=== PATIENT | female | born 1975 | race Caucasian/White ===

== ENCOUNTER 2016-09-19 17:42 | Emergency (ER) | payer MEDICAID ==
[2016-09-19 17:49] VITALS: BP 95/67; PULSE 78; TEMP 98.1; O2SAT 95
--- NOTE | 2016-09-19 18:18 | EDPHY ---
H & P Stated Complaint: dog bite l hand Time Seen by Provider: 09/19/16 18:18 HPI/ROS: CHIEF COMPLAINT: Dog bite left hand HISTORY OF PRESENT ILLNESS: The patient presents to the ED for evaluation of dog bite to her left hand. The patient was bit by her domesticated pet who is fully vaccinated. The patient denies any numbness or weakness. She sustained a puncture wound to the dorsum of her left hand over the 3rd MCP joint. She sustained another puncture wound over the ulnar aspect of her 4th finger distal to the MCP but proximal to the PIP joint. The patient reports severe allergy to tetanus and tetanus toxoid. The patient has no antibiotic allergies. The patient denies additional complaints. REVIEW OF SYSTEMS: A comprehensive 10 point review of systems is otherwise negative aside from elements mentioned in the history of present illness. Source: Patient Exam Limitations: No limitations - Personal History LMP (Females 10-55): Now Current Tetanus/Diphtheria Vaccine: No - Medical/Surgical History Hx Asthma: Yes Hx Chronic Respiratory Disease: No Hx Diabetes: No Hx Cardiac Disease: No Hx Renal Disease: No Hx Cirrhosis: No Hx Alcoholism: No Hx HIV/AIDS: No Hx Splenectomy or Spleen Trauma: No Other PMH: , - Social History Smoking Status: Former smoker - Physical Exam Exam: General Appearance: Alert, no distress Skin: 2 discrete puncture wounds described below on left hand Extremities: Left hand: Puncture wound over the dorsal aspect of the left hand overlying the 3rd MCP joint, puncture wound to the left 4th finger distal to the MCP along the ulnar aspect of the digit. Normal range of motion Neurological: Sensation intact to light touch and two-point discrimination Constitutional: Initial Vital Signs Temperature (C) 36.7 C 09/19/16 17:46 Heart Rate 78 09/19/16 17:46 Respiratory Rate 18 09/19/16 17:46 Blood Pressure 95/67 L 09/19/16 17:46 O2 Sat (%) 95 09/19/16 17:46 O2 Delivery Mode Room Air Allergies/Adverse Reactions: Tetanus Vaccines and Toxoid [Tetanus Vaccines & Toxoid] Allergy (Verified 17:43) IV CONTRAST Allergy (Intermediate, Uncoded 05/24/15 20:09) MIGRAINE MED Allergy (Uncoded 05/24/15 20:09) Home Medications: Medication Instructions Recorded Albuterol [Proventil 2 mg (*)] 05/24/15 Cholestyramine Packet 03/20/16 [place] 3 1,000 mg Softgel 03/20/16 Amoxicillin/Clavulanate Pot 875 mg PO BID #20 tab 09/19/16 [Augmentin 875 mg tablet] Medical Decision Making Procedures: Procedure: Splint placement. A ortho glass volar hand splint was applied to the body location by the tech. After application of the splint I returned and re-examined the patient. The splint was adequately immobilizing the joint and distal to the splint the patient's circulation and sensation was intact. ED Course/Re-evaluation: I anesthetized the puncture wounds with lidocaine with epinephrine. An angiocatheter was used to irrigate puncture wounds. The patient is intolerant to tetanus vaccination. The patient will be placed in a ortho glass volar splint. She received oral Augmentin. I spoke with Dr. Christine Shaw our on-call hand surgeon at 7:15 p.m.. I reviewed the case and ED treatment with her. She will see the patient in her office tomorrow to reassess the wound and verify there is no evidence of a septic arthritis developing. The patient will be discharged home with customary aftercare instructions. Differential Diagnosis: Differential diagnosis considered includes open joint, tendon injury, neurovascular injury - Data Points Medications Given: Discontinued Medications Amoxicillin/Clavulanate Potassium (Augmentin 875mg) 875 mg PO EDNOW ONE PRN Reason: Protocol Stop: 09/19/16 18:40 Last Admin: 09/19/16 18:49 Dose: 875 mg Departure - Departure Disposition: Home, Routine, Self-Care Clinical Impression: Dog bite of left hand Condition: Good Instructions: Animal Bite (ED) Additional Instructions: 1. Please take antibiotics as directed for next week. 2. Please schedule a follow-up appointment to see our hand surgeon tomorrow for recheck. I spoke with Dr. Christine Shaw this evening and she is expecting your telephone call morning. Given the proximity of the dog bite to the knuckle I am concerned about the risk of a more significant infection developing. It is imperative that you be seen by the hand specialist tomorrow to ensure this condition is not developing. Additionally, you should return to the ED for any increasing pain, redness, swelling or other concerns as this may be the sign of a progressive infection. 3. Please keep and immobilized in splint as much as possible over the next 7 days. Referrals: Christine Shaw MD [Medical Doctor] - As per Instructions Prescriptions: Amoxicillin/Clavulanate Pot [Augmentin 875 mg tablet] 875 mg PO BID #20 tab
[2016-09-19] MEDS ORDERED: AMOXICILLIN/CLAVULANATE POT 875/125 MG TAB PO ONE (18:39)
[2016-09-19 19:35] VITALS: RESP 16
== END 2016-09-19 19:34 | disposition home or self-care (01) ==
PROC: 2W3FX1Z Immobilization of Left Hand using Splint (ICD-10-PCS; principal; 2016-09-19)
DX: S61.452A Open bite of left hand, initial encounter (principal); J45.909 Unspecified asthma, uncomplicated; Z87.891 Personal history of nicotine dependence; W54.0XXA Bitten by dog, initial encounter

== ENCOUNTER 2016-09-21 15:24 | Emergency (ER) | payer MEDICAID ==
[2016-09-21 15:32] VITALS: RESP 18
--- NOTE | 2016-09-21 16:50 | EDPHY ---
H & P Stated Complaint: infection l hand post dog bite Time Seen by Provider: 09/21/16 16:30 - Personal History LMP (Females 10-55): 1-7 Days Ago Current Tetanus/Diphtheria Vaccine: No - Medical/Surgical History Hx Asthma: Yes Hx Chronic Respiratory Disease: No Hx Diabetes: No Hx Cardiac Disease: No Hx Renal Disease: No Hx Cirrhosis: No Hx Alcoholism: No Hx HIV/AIDS: No Hx Splenectomy or Spleen Trauma: No Other PMH: , - Social History Smoking Status: Former smoker Constitutional: Initial Vital Signs Temperature (C) 36.7 C 09/21/16 15:29 Heart Rate 78 09/21/16 15:29 Respiratory Rate 18 09/21/16 15:29 Blood Pressure 120/78 09/21/16 15:29 O2 Sat (%) 94 09/21/16 15:29 O2 Delivery Mode Room Air Allergies/Adverse Reactions: Tetanus Vaccines and Toxoid [Tetanus Vaccines & Toxoid] Allergy (Verified 15:29) IV CONTRAST Allergy (Intermediate, Uncoded 05/24/15 20:09) MIGRAINE MED Allergy (Uncoded 05/24/15 20:09) Home Medications: Medication Instructions Recorded Albuterol [Proventil 2 mg (*)] 05/24/15 Cholestyramine Packet 03/20/16 [place] 3 1,000 mg Softgel 03/20/16 Amoxicillin/Clavulanate Pot 875 mg PO BID #20 tab 09/19/16 [Augmentin 875 mg tablet] oxyCODONE IR [Oxycodone Ir (*)] 5 - 10 mg PO Q6 PRN #20 tab 09/21/16 Medical Decision Making ED Course/Re-evaluation: CHIEF COMPLAINT: Left hand wound HISTORY OF PRESENT ILLNESS: This patient is a 41 year old female who presents to the Emergency Department complaining of left hand pain, swelling, and erythema secondary to being bit by a dog on Tuesday and worsening over time. She was seen in the ED on Tuesday and received wound care at that time and started a course of Augmentin. Today, she saw Dr. Sangita Bland who referred the patient back to the ED for increasing swelling and evidence of inflammation. She denies chills, fever, or other evidence of systemic illness. She does not have a recent Tetanus on file due to history of allergy. No additional pertinent medical history. REVIEW OF SYSTEMS: A 10 point review of systems was performed and is negative with the exception of the elements mentioned in the history of present illness. PHYSICAL EXAM: HR, BP 170/78, O2 Sat 94%, RR. Temp noted General Appearance: Alert, well hydrated, appropriate, and non-toxic appearing. Head: Atraumatic without scalp tenderness or obvious injury Eyes: Pupils equal, round, reactive to light and accommodation, EOMI, no trauma , no injection. Ears: Clear bilaterally, no perforation, normal landmarks Nose: Atraumatic, no rhinorrhea, clear. Throat: There is no erythema or exudates, no lesions, normal tonsils, mucus membranes moist. Neck: Supple, 2+ carotid upstroke, nontender, no lymphadenopathy. Respiratory: No retractions, no distress, no wheezes, and no accessory muscle use. Lungs are clear to auscultation bilaterally. Cardiovascular: Regular rate and rhythm, no murmurs, rubs, or gallops. Bilateral carotid, radial, dorsalis pedis, and posterior tibial pulses intact. Good capillary refill all extremities. Gastrointestinal: Abdomen is soft, nontender, non-distended, no masses, no rebound, no guarding, no peritoneal signs. Musculoskeletal: Normal active ROM of all extremities. Left hand: no lymphangitis, limited left hand flexion and extension, 2cm increase to janet of cellulitis and swelling to the dorsum of the left hand; no streaking; multiple puncture wounds. No [place] signs. Neurological: Alert, appropriate, and interactive. The patient has normal DTRs and non-focal cranial nerves, motor, sensory, and cerebellar exam. Skin: No rashes, good turgor, no nodules on palpation. Past medical history: Asthma. Allergy to Tetanus shot. Past surgical history: Denies. Family history: Non-contributory. Social history: Non-smoker, no alcohol use. DIFFERENTIAL DIAGNOSIS: Differential diagnosis for the patient's hand swelling includes but is not limited to wound abscess, cellulitis, or systemic infection. MEDICAL DECISION MAKING: This 41 year old female was seen in the ED on Tuesday, two days prior to arrival , for puncture wounds secondary to a dog bite. She started Augmentin at that time and has been compliant with this medication. She was referred today by Dr. Bland who suggested she may require IV antibiotics. On exam, there is more evidence of ecchymosis versus cellulitis. No streaking or evidence of systemic illness. Given this, I expect that the patient's wound is being treated appropriately with her course of Augmentin and recommend that she continue this. She is agreeable to this and will be discharged home with oxycodone for pain. Departure - Departure Disposition: Home, Routine, Self-Care Clinical Impression: Encounter for wound re-check Instructions: Acute Wound Care (ED), Animal Bite (ED) Additional Instructions: 1. Continue to monitor the swelling to your hand. You should expect this to improve over the next 2-3 days. If not, we recommend that you follow-up with Dr. Cain. 2. Take oxycodone as prescribed, as needed for pain (especially while sleeping). 3. Return to the Emergency Department immediately if you experience red streaking to your arm, dramatic increase in pain or swelling, fever or chills, or other serious concerns. Referrals: Felipe Cain MD [Medical Doctor] - As per Instructions Prescriptions: oxyCODONE IR [Oxycodone Ir (*)] 5 - 10 mg PO Q6 PRN #20 tab PRN Reason: Pain, Severe Report Scribed for: Mesfin Degroot Report Scribed by: Sondra Marvin Date of Report: 09/21/16 Time of Report: 17:00
[2016-09-21 17:15] VITALS: BP 115/75; PULSE 74; TEMP 99; O2SAT 99
== END 2016-09-21 17:15 | disposition home or self-care (01) ==
DX: Z48.00 Encounter for change or removal of nonsurgical wound dressing (principal); J45.909 Unspecified asthma, uncomplicated; Z87.891 Personal history of nicotine dependence

== ENCOUNTER 2016-12-02 21:32 | Emergency (ER) | payer MEDICAID ==
[2016-12-02] MEDS ORDERED: KETOROLAC 30 MG/1 ML SDV IVP ONE (21:59)
[2016-12-02] MEDS ORDERED: DEXAMETHASONE 10 MG/ML VIAL IVP ONE (21:59)
[2016-12-02] MEDS ORDERED: NS 1,000 ML IV ONE (21:59)
[2016-12-02] MEDS ORDERED: HYDROmorphONE/DILAUDID 1 MG/ML SYR IVP ONE (21:59)
[2016-12-02] MEDS ORDERED: METOCLOPRAMIDE 10 MG/2 ML VIAL IVP ONE (21:59)
--- NOTE | 2016-12-02 22:03 | EDPHY ---
H & P Stated Complaint: MAHAN Time Seen by Provider: 12/02/16 21:52 HPI/ROS: CHIEF COMPLAINT: HEADACHE HISTORY OF PRESENT ILLNESS: The patient is a 41-year-old female with a history of migraines who comes to the emergency department with a headache for the last 24 hours. She states that this headache is not typical of her migraines. It is not as severe as her migraines. Also it did not begin with her typical visual aura. She states that it began yesterday while she was excited at a book signing. It has been 02/21 ever since. She denies any trauma. She denies fevers or recent infections. She does have some photophobia. No nausea, vomiting, paresthesias or weakness. No chest pain or palpitations. REVIEW OF SYSTEMS: Constitutional: denies: chills, fever, recent illness, recent injury EENTM: denies: blurred vision, double vision, nose congestion Respiratory: denies: cough, shortness of breath Cardiac: denies: chest pain, irregular heart rate, lightheadedness, palpitations Gastrointestinal/Abdominal: denies: abdominal pain, diarrhea, nausea, vomiting, blood streaked stools Genitourinary: denies: dysuria, frequency, hematuria, pain Musculoskeletal: denies: joint pain, muscle pain Skin: denies: lesions, rash, jaundice, bruising Neurological: See HPI denies: numbness, paresthesia, tingling, dizziness, weakness Hematologic/Lymphatic: denies: blood clots, easy bleeding, easy bruising Immunologic/allergic: denies: HIV/AIDS, transplant EXAM: GENERAL: Well-appearing, well-nourished and in no acute distress. HEAD: Atraumatic, normocephalic. EYES: Pupils equal round and reactive to light, extraocular movements intact, sclera anicteric, conjunctiva are normal. ENT: TMs normal, nares patent, oropharynx clear without exudates. Moist mucous membranes. NECK: Normal range of motion, supple without lymphadenopathy or JVD. No meningismus LUNGS: Breath sounds clear to auscultation bilaterally and equal. No wheezes rales or rhonchi. HEART: Regular rate and rhythm without murmurs, rubs or gallops. ABDOMEN: Soft, nontender, normoactive bowel sounds. No guarding, no rebound. No masses appreciated. BACK: No CVA tenderness, no spinal tenderness, step-offs or deformities EXTREMITIES: Normal range of motion, no pitting or edema. No clubbing or cyanosis. NEUROLOGICAL: Cranial nerves II through XII grossly intact. Normal speech, normal gait. 5/5 strength, normal movement in all extremities, normal sensation PSYCH: Normal mood, normal affect. SKIN: Warm, dry, normal turgor, no visible rashes or lesions. Source: Patient Exam Limitations: No limitations - Personal History LMP (Females 10-55): Now Current Tetanus/Diphtheria Vaccine: No Current Tetanus Diphtheria and Acellular Pertussis (TDAP): No - Medical/Surgical History Hx Asthma: Yes Hx Chronic Respiratory Disease: No Hx Diabetes: No Hx Cardiac Disease: No Hx Renal Disease: No Hx Cirrhosis: No Hx Alcoholism: No Hx HIV/AIDS: No Hx Splenectomy or Spleen Trauma: No Other PMH: , migraines, lymes disease, adrenal fatigue - Family History Significant Family History: No pertinent family hx - Social History Smoking Status: Former smoker Alcohol Use: Sober Drug Use: None Constitutional: Initial Vital Signs Temperature (C) 36.5 C 12/02/16 21:39 Heart Rate 73 12/02/16 21:39 Respiratory Rate 20 12/02/16 21:39 Blood Pressure 106/70 12/02/16 21:39 O2 Sat (%) 96 12/02/16 21:39 O2 Delivery Mode Room Air Allergies/Adverse Reactions: Tetanus Vaccines and Toxoid [Tetanus Vaccines & Toxoid] Allergy (Verified 21:37) IV CONTRAST Allergy (Intermediate, Uncoded 12/02/16 21:37) MIGRAINE MED Allergy (Uncoded 12/02/16 21:37) Home Medications: Medication Instructions Recorded Albuterol [Proventil 2 mg (*)] 05/24/15 [place] 3 1,000 mg Softgel 03/20/16 [place] 12/02/16 Flonase Nasal [place] 12/02/16 Pregnenolone Micronized 12/02/16 Metoclopramide [Reglan 10 mg tab 10 mg PO BID PRN #10 tab 12/03/16 (RX)] Medical Decision Making - Diagnostics Imaging: Discussed imaging studies w/ calliope player Radiologist ED Course/Re-evaluation: 11:20 p.m. the patient is feeling much better. She is not yet ready to go home but she declines further medication. I did offer a lumbar puncture but she declines. She understands the risks involved. I think that the likelihood of this being a subarachnoid is very low especially considering her negative head CT. She does describe atypical migraines in the past including 1 that involves loss of speech for 3 days. She thinks she may be having another migraine that does not follow her typical migraine pattern. It is also not worst headache of her life. The onset was gradual. 4:20 a.m. the patient's headache is much better although not completely gone. She continues to decline further medications. She will accept a prescription for Reglan she is not safe to drive at night and therefore we will wait until around 6:00 a.m. to discharge Differential Diagnosis: Partial list of the Differential diagnosis considered include but were not limited to; migraine, headache, and although unlikely based on the history and physical exam, I also considered infection, aneurysm, subarachnoid. I discussed these differential diagnoses and the plan with the patient as well as the usual and expected course. The patient understands that the diagnosis is provisional and that in medicine we are not always correct and that further workup is often warranted. Usual and customary warnings were given. All of the patient's questions were answered. The patient was instructed to return to the emergency department should the symptoms at all worsen or return, otherwise to followup with the physician as we discussed. - Data Points Laboratory Results: Laboratory Results 12/02/16 22:07 12/02/16 22:07 Medications Given: Discontinued Medications Hydrocodone Bitart/Acetaminophen ([place] 5/325mg [place]ack#6) 1 btl TAKEHOME EDNOW ONE Stop: 12/03/16 06:29 Last Admin: 12/03/16 06:36 Dose: 1 btl Dexamethasone (Decadron Injection) 10 mg IVP EDNOW ONE Stop: 12/02/16 22:00 Last Admin: 12/02/16 22:35 Dose: 10 mg Hydromorphone HCl (Dilaudid) 1 mg IVP EDNOW ONE Stop: 12/02/16 22:00 Last Admin: 12/02/16 22:19 Dose: 1 mg Sodium Chloride (Ns) 1,000 mls @ 0 mls/hr IV ONCE ONE PRN Reason: Wide [place] Stop: 12/02/16 22:00 Last Admin: 12/02/16 22:19 Dose: 1,000 mls Ketorolac Tromethamine (Toradol) 30 mg IVP EDNOW ONE Stop: 12/02/16 22:00 Last Admin: 12/02/16 22:36 Dose: 30 mg Metoclopramide HCl (Reglan Injection) 10 mg IVP EDNOW ONE Stop: 12/02/16 22:00 Last Admin: 12/02/16 22:35 Dose: 10 mg Departure - Departure Disposition: Home, Routine, Self-Care Clinical Impression: Headache Qualifiers: Headache type: unspecified Headache chronicity pattern: acute headache Intractability: not intractable Qualified Code(s): R51 - Headache Condition: Fair Instructions: Hydrocodone/Acetaminophen (By mouth), Acute Headache (ED) Referrals: NONE *PRIMARY CARE P,. [Primary Care Provider] - As per Instructions Joon Gracia MD [Medical Doctor] - As per Instructions Prescriptions: Metoclopramide [Reglan 10 mg tab (RX)] 10 mg PO BID PRN #10 tab PRN Reason: Headache
[2016-12-02] MEDS ORDERED: ONDANSETRON 4 MG/2 ML VIAL ONE (22:13)
[2016-12-02 22:23] LABS: % IMMATURE GRANULYOCYTES 0.3 % (0.0-1.1); ABSOLUTE IMMATURE GRANULOCYTES 0.02 10^3/uL (0.00-0.10); ADD DIFF? NO; ADD MORPH? NO; ADD SCAN? NO; ATYPICAL LYMPHOCYTE FLAG 0 (0-99); FRAGMENT RBC FLAG 0 (0-99); HEMATOCRIT 41.4 % (38.0-47.0); HEMOGLOBIN 14.2 g/dL (12.6-16.3); LEFT SHIFT FLG 0 (0-99); LIPEMIA HEMOLYSIS FLAG 90 (0-99); MEAN CELL HEMOGLOBIN 29.2 pg (27.9-34.1); MEAN CELL HEMOGLOBIN CONCENTR. 34.3 g/dL (32.4-36.7); MEAN CELL VOLUME 85.2 fL (81.5-99.8); MEAN PLATELET VOLUME 9.6 fL (8.7-11.7); PLATELET CLUMPS FLAG 20 (0-99); PLATELET COUNT 341 10^3/uL (150-400); RED BLOOD CELL COUNT 4.86 10^6/uL (4.18-5.33); RED CELL DISTRIBUTION WIDTH 12.7 % (11.5-15.2)
[2016-12-02 22:36] LABS: ANION GAP 10 mEq/L (8-16); CALCIUM 9.2 mg/dL (8.5-10.4); CARBON DIOXIDE 21 mEq/l (22-31); CHLORIDE 108 mEq/L (97-110); GLOMERULAR FILTRATION RATE > 60; GLUCOSE 89 mg/dL (70-100); SODIUM 139 mEq/L (134-144)
[2016-12-03 00:05] VITALS: O2SAT 95
[2016-12-03 06:26] VITALS: BP 107/68; PULSE 78; RESP 18; TEMP 98.2
[2016-12-03] MEDS ORDERED: HYDROCOD/APAP 5/325 PREPACK#6 BTL TAKEHOME ONE (06:28)
== END 2016-12-03 06:45 | disposition home or self-care (01) ==
DX: R51 Headache (principal); J45.909 Unspecified asthma, uncomplicated; Z87.891 Personal history of nicotine dependence
CPT/HCPCS: 96374; J1170; J1885; J2405; J2765

== ENCOUNTER 2017-02-02 14:24 | Inpatient (IN) | payer MEDICAID ==
[2017-02-02] MEDS ORDERED: NS 1,000 ML IV ONE ×2 (15:43→15:44)
[2017-02-02] MEDS ORDERED: HYDROmorphONE/DILAUDID 1 MG/ML SYR IVP ONE (15:43)
[2017-02-02] MEDS ORDERED: ONDANSETRON 4 MG/2 ML VIAL IVP ONE (15:44)
[2017-02-02] MEDS ORDERED: HYDROmorphONE/DILAUDID 1 MG/ML SYR ONE (15:44)
--- NOTE | 2017-02-02 15:55 | EDPHY ---
H & P Time Seen by Provider: 02/02/17 15:43 HPI/ROS: HPI Lower abdominal pain. 41-year-old female by private vehicle. She has a history of diverticulitis. She complains of onset of left lower quadrant abdominal pain described as sharp and stabbing, nonradiating since yesterday evening. She reports that she also had multiple bowel movements yesterday. No bloody or melenic stool. She has had continued urge to defecate through today. She has had nausea, loss of appetite but no vomiting. She reports this pain is similar to her last exacerbation of diverticulitis. She has not had diarrhea ROS: Constitutional: No fever, no chills. No weakness. Eyes: No discharge. No changes in vision. ENT: No sore throat. No nasal congestion or rhinorrhea. Respiratory: No cough. No shortness of breath. Cardiac: No chest pain, no palpitations. Gastrointestinal: As above. Genitourinary: No hematuria. No dysuria or increased frequency with urination. Musculoskeletal: No back pain. No neck pain. No myalgias or arthralgias. Skin: No rashes. Neurological: No headache. No focal weakness or altered sensation. Past medical history: Diverticulitis, Lyme disease, adrenal insufficiency, C- section, migraine headaches. Social history: Nonsmoker. No alcohol. Here by herself. Physical Exam: General Appearance: Alert, she appears uncomfortable. This patient is responding to questions appropriately and in full sentences. This patient appears well-hydrated and well-nourished. Eyes: Pupils equal and round no pallor or injection. No lid edema, erythema or injection. ENT, Mouth: Mucous membranes are moist. The pharyngeal tissues are unremarkable. No edema or swelling. No asymmetry suggestive of abscess. No erythema or exudates. Respiratory: There are no retractions, lungs are clear to auscultation with good air movement bilaterally. Cardiovascular: Regular rate and rhythm. No murmur. Gastrointestinal: Abdomen is soft with left lower quadrant tenderness on palpation with associated voluntary guarding, no masses, bowel sounds normal. No focal tenderness at McBurney's point. No Ventura sign. Neurological: Motor sensory function is grossly intact. Cranial nerves are normal. Gait is normal. Skin: Warm and dry, no rashes. Musculoskeletal: Neck is supple and nontender. Extremities are symmetrical. All joints range without pain or impingement. Psychiatric: No agitation. No depression. Database: EKG: Imaging: CT scan of abdomen and pelvis with IV contrast: Significant for diverticulitis involving the descending colon and sigmoid colon. No abscess. No obstruction. No free air. Significant inflammation noted. Results were discussed with staff radiologist Dr. Linda. Procedures: Emergency department course: IV placed. She was placed on a monitor. She was started on IV normal saline with 1-2 L to be given over the next 1-2 hours. She was initially given 0.5 mg of IV hydromorphone and 4 mg of IV Zofran. I discussed CT imaging for evaluation of probable diverticulitis. She consents. 4:40 p.m., patient re-evaluated. Results of CT scan discussed with her. Diagnosis of diverticulitis discussed. She had a reaction to ciprofloxacin which included joint tendon pain. She will be given IV Unasyn. Repeat abdominal exam she still has significant tenderness in the left lower quadrant on palpation. She will be admitted to the hospitalist service. 4:50 p.m., spoke with hospitalist, Dr. Monsalve. He accepts this patient for admission. Patient received her 1st dose of IV Unasyn in the emergency department. Patient admitted to the hospitalist service in stable condition. Differential Diagnosis: The differential diagnosis on this patient includes but is not limited to diverticulitis, volvulus, ovarian cyst, ovarian torsion, ureterolithiasis. This represents a partial list of diagnoses considered. These considerations are based on history, physical exam, past history, reassessment and diagnostic testing. Smoking Status: Never smoked Constitutional: Initial Vital Signs Temperature (C) 36.6 C 02/02/17 14:45 Heart Rate 104 H 02/02/17 14:45 Respiratory Rate 20 02/02/17 14:45 Blood Pressure 99/85 H 02/02/17 14:45 O2 Sat (%) 96 02/02/17 14:45 O2 Delivery Mode Room Air Allergies/Adverse Reactions: Tetanus Vaccines and Toxoid [Tetanus Vaccines & Toxoid] Allergy (Verified 21:37) IV CONTRAST Allergy (Intermediate, Uncoded 12/02/16 21:37) MIGRAINE MED Allergy (Uncoded 12/02/16 21:37) Home Medications: Medication Instructions Recorded Albuterol [Proventil 2 mg (*)] 05/24/15 Nimitz 3 1,000 mg Softgel 03/20/16 Dhea 12/02/16 Flonase Nasal Dexter 12/02/16 Pregnenolone Micronized 12/02/16 Metoclopramide [Reglan 10 mg tab 10 mg PO BID PRN #10 tab 12/03/16 (RX)] Medical Decision Making - Data Points Laboratory Results: Laboratory Results 02/02/17 15:20 02/02/17 15:20 02/02/17 02/02/17 02/02/17 15:20 15:20 15:20 WBC 15.30 10^3/uL H 10^3/uL (3.80-9.50) RBC 5.15 10^6/uL 10^6/uL (4.18-5.33) Hgb 15.2 g/dL g/dL (12.6-16.3) Hct 43.3 % % (38.0-47.0) MCV 84.1 fL fL (81.5-99.8) MCH 29.5 pg pg (27.9-34.1) MCHC 35.1 g/dL g/dL (32.4-36.7) RDW 12.1 % % (11.5-15.2) Plt Count 350 10^3/uL 10^3/uL (150-400) MPV 9.6 fL fL (8.7-11.7) Neut % (Auto) 72.2 % % (39.3-74.2) Lymph % (Auto) 17.3 % % (15.0-45.0) Rains % (Auto) 7.1 % % (4.5-13.0) Eos % (Auto) 2.5 % % (0.6-7.6) Baso % (Auto) 0.5 % % (0.3-1.7) Nucleat RBC Rel Count 0.0 % % (0.0-0.2) Absolute Neuts (auto) 11.07 10^3/uL H 10^3/uL (1.70-6.50) Absolute Lymphs (auto) 2.64 10^3/uL 10^3/uL (1.00-3.00) Absolute Monos (auto) 1.08 10^3/uL H 10^3/uL (0.30-0.80) Absolute Eos (auto) 0.38 10^3/uL 10^3/uL (0.03-0.40) Absolute Basos (auto) 0.07 10^3/uL 10^3/uL (0.02-0.10) Absolute Nucleated RBC 0.00 10^3/uL 10^3/uL (0-0.01) Immature Gran % 0.4 % % (0.0-1.1) Immature Gran # 0.06 10^3/uL 10^3/uL (0.00-0.10) Sodium 136 mEq/L mEq/L (134-144) Potassium 4.2 mEq/L mEq/L (3.5-5.2) Chloride 104 mEq/L mEq/L (97-110) Carbon Dioxide 19 mEq/l L mEq/l (22-31) Anion Gap 13 mEq/L mEq/L (8-16) BUN 16 mg/dL mg/dL (7-23) Creatinine 0.9 mg/dL mg/dL (0.6-1.0) Estimated GFR > 60 Glucose 87 mg/dL mg/dL (70-100) Calcium 9.7 mg/dL mg/dL (8.5-10.4) Total Bilirubin 1.1 mg/dL mg/dL (0.1-1.4) Conjugated Bilirubin 0.4 mg/dL mg/dL (0.0-0.5) Unconjugated Bilirubin 0.7 mg/dL mg/dL (0.0-1.1) AST 18 IU/L IU/L (14-46) ALT 30 IU/L IU/L (9-52) Alkaline Phosphatase 64 IU/L IU/L (38-126) Total Protein 7.6 g/dL g/dL (6.3-8.2) Albumin 4.3 g/dL g/dL (3.5-5.0) Lipase 65.0 IU/L IU/L (23-300) Beta HCG, Qual NEGATIVE Medications Given: Discontinued Medications Hydromorphone HCl (Dilaudid) 0.5 mg IVP EDNOW ONE Stop: 02/02/17 15:44 Last Admin: 02/02/17 15:50 Dose: 0.5 mg Sodium Chloride (Ns) 1,000 mls @ 0 mls/hr IV ONCE ONE PRN Reason: Wide Open Stop: 02/02/17 15:44 Last Admin: 02/02/17 15:50 Dose: 1,000 mls Sodium Chloride (Ns) 1,000 mls @ 0 mls/hr IV ONCE ONE; Wide Open PRN Reason: Protocol Stop: 02/02/17 15:45 Last Admin: 02/02/17 15:57 Dose: 1,000 mls Ondansetron HCl (Zofran) 4 mg IVP EDNOW ONE Stop: 02/02/17 15:45 Last Admin: 02/02/17 15:57 Dose: Not Given Departure - Departure Disposition: [facility] [place] Inpatient Acute Clinical Impression: Lower abdominal pain, Diverticulitis Referrals: KIRBY POSEY [Primary Care Provider] - As per Instructions
[2017-02-02] MEDS ORDERED: IOPAMIDOL (ISOVUE-300) 100 ML BTL ONE (15:56)
[2017-02-02 15:58] LABS: % IMMATURE GRANULYOCYTES 0.4 % (0.0-1.1); ABSOLUTE IMMATURE GRANULOCYTES 0.06 10^3/uL (0.00-0.10); ADD DIFF? NO; ADD MORPH? NO; ADD SCAN? NO; ATYPICAL LYMPHOCYTE FLAG 0 (0-99); FRAGMENT RBC FLAG 0 (0-99); HEMATOCRIT 43.3 % (38.0-47.0); HEMOGLOBIN 15.2 g/dL (12.6-16.3); LEFT SHIFT FLG 0 (0-99); LIPEMIA HEMOLYSIS FLAG 90 (0-99); MEAN CELL HEMOGLOBIN 29.5 pg (27.9-34.1); MEAN CELL HEMOGLOBIN CONCENTR. 35.1 g/dL (32.4-36.7); MEAN CELL VOLUME 84.1 fL (81.5-99.8); MEAN PLATELET VOLUME 9.6 fL (8.7-11.7); PLATELET CLUMPS FLAG 0 (0-99); PLATELET COUNT 350 10^3/uL (150-400); RED BLOOD CELL COUNT 5.15 10^6/uL (4.18-5.33); RED CELL DISTRIBUTION WIDTH 12.1 % (11.5-15.2)
[2017-02-02 16:00] LABS: ALANINE AMINOTRANSFERASE 30 IU/L (9-52); ALBUMIN 4.3 g/dL (3.5-5.0); ALKALINE PHOSPHATASE 64 IU/L (38-126); ANION GAP 13 mEq/L (8-16); ASPARTATE AMINOTRANSFERASE 18 IU/L (14-46); BILIRUBIN,TOTAL 1.1 mg/dL (0.1-1.4); BILIRUBIN-CONJUGATED 0.4 mg/dL (0.0-0.5); BILIRUBIN-UNCONJUGATED 0.7 mg/dL (0.0-1.1); CALCIUM 9.7 mg/dL (8.5-10.4); CARBON DIOXIDE 19 mEq/l (22-31); CHLORIDE 104 mEq/L (97-110); CREATININE 0.9 mg/dL (0.6-1.0); GLOMERULAR FILTRATION RATE > 60; GLUCOSE 87 mg/dL (70-100); POTASSIUM 4.2 mEq/L (3.5-5.2); SODIUM 136 mEq/L (134-144); TOTAL PROTEIN 7.6 g/dL (6.3-8.2)
[2017-02-02] MEDS ORDERED: AMPICILLIN/SULBACTAM 3 GM in NS 100 ML IV ONE (16:40)
[2017-02-02] MEDS ORDERED: ACETAMINOPHEN 325 MG TAB PO PRN (18:15)
[2017-02-02] MEDS ORDERED: ONDANSETRON DISINTEGRATING 4 MG TAB PO PRN (18:15)
[2017-02-02] MEDS ORDERED: ONDANSETRON 4 MG/2 ML VIAL IVP PRN (18:15)
[2017-02-02] MEDS ORDERED: ALBUTEROL INH PREPACK MDI TAKEHOME PRN (18:17)
[2017-02-02] MEDS ORDERED: ALBUTEROL 200 PUFFS/18 GM MDI IH PRN (18:34)
[2017-02-02] MEDS ORDERED: CHOLESTYRAMINE PO SCH (19:30)
[2017-02-02] MEDS: HYDROmorphONE/DILAUDID 1 MG/ML SYR IVP PRN (19:56)
[2017-02-02] MEDS: D5W 1/2 NS W/ 20 KCl/L 1,000 ML IV SCH (19:56)
--- NOTE | 2017-02-02 21:34 | GHP ---
[f rep st] HISTORY AND PHYSICAL DATE OF ADMISSION: 02/02/2017 CHIEF COMPLAINT: Abdominal pain. HISTORY OF PRESENT ILLNESS: A 41-year-old female who has a previous history of diverticulitis about 5 years ago. She presented with a 1 day history of left lower quadrant pain associated with fever and chills. She has had decreased p.o. intake. She has had multiple bowel movements, but they are not diarrhea. It feels like a previous diverticulitis flare. REVIEW OF SYSTEMS: A 10-point review of systems was obtained, other than stated above is negative. PAST MEDICAL HISTORY: Lyme disease, mold exposure, asthma. MEDICATIONS: Reviewed. SOCIAL HISTORY: No smoking or alcohol. FAMILY HISTORY: Positive for diverticulitis. PHYSICAL EXAMINATION: VITAL SIGNS: Afebrile, blood pressure is 108/65, heart rate 71, oxygen satur ation 98% on room air. GENERAL: Patient is well-developed, no apparent distress. HEENT: Nonicter ic sclerae. Extraocular movements intact. Moist mucous membranes. NECK: Supple. No thyromegaly. LUNGS: Good effort. Clear to auscultation bilaterally. CARDIOVASCULAR: Regular rate and rhythm . No murmurs, rubs, or gallops. ABDOMEN: Positive bowel sounds, soft. Left lower quadrant tender ness. No rebound or guarding. EXTREMITIES: No clubbing, cyanosis, or edema. SKIN: Without rash. Warm, dry, intact. NEUROLOGIC: Alert and oriented x3. Moving all 4 extremities equally. PSYCH: Normal mood and affect. LABORATORY DATA: White count 15. Chemistries normal. CT scan shows diverticulitis of the proximal sigmoid colon, but no abscess. ASSESSMENT: A 41-year-old female presenting with acute diverticulitis. PLAN: 1. Diverticulitis. The patient in the ER continue this. We will monitor her for improvement and could probably switch her to p.o. in next 24-48 hours. 2. Asthma. This is quiescent. 3. Admission. Patient will be admitted under full admission status. Case was discussed with the E R physician. CT scan is personally reviewed and interpreted. /[id number]/MODL
[2017-02-02] MEDS: CHOLESTYRAMINE 4 GM PO SCH (21:39)
[2017-02-02] MEDS: FLUTICASONE HFA 110 MCG MDI IH SCH (22:10)
[2017-02-03] MEDS: AMPICILLIN/SULBACTAM 3 GM in NS 100 ML IV SCH ×2 (00:19→05:14)
[2017-02-03] MEDS: HYDROmorphONE/DILAUDID 1 MG/ML SYR IVP PRN (05:14)
[2017-02-03] MEDS: D5W 1/2 NS W/ 20 KCl/L 1,000 ML IV SCH ×2 (05:14→16:16)
[2017-02-03 06:08] LABS: % IMMATURE GRANULYOCYTES 0.3 % (0.0-1.1); ABSOLUTE IMMATURE GRANULOCYTES 0.03 10^3/uL (0.00-0.10); ADD DIFF? NO; ADD MORPH? NO; ADD SCAN? NO; ATYPICAL LYMPHOCYTE FLAG 0 (0-99); FRAGMENT RBC FLAG 0 (0-99); HEMATOCRIT 36.2 % (38.0-47.0); HEMOGLOBIN 12.4 g/dL (12.6-16.3); LEFT SHIFT FLG 0 (0-99); LIPEMIA HEMOLYSIS FLAG 90 (0-99); MEAN CELL HEMOGLOBIN 29.5 pg (27.9-34.1); MEAN CELL HEMOGLOBIN CONCENTR. 34.3 g/dL (32.4-36.7); MEAN CELL VOLUME 86.2 fL (81.5-99.8); MEAN PLATELET VOLUME 9.8 fL (8.7-11.7); PLATELET CLUMPS FLAG 0 (0-99); PLATELET COUNT 270 10^3/uL (150-400); RED CELL DISTRIBUTION WIDTH 12.3 % (11.5-15.2)
[2017-02-03 06:15] LABS: ANION GAP 7 mEq/L (8-16); CALCIUM 8.4 mg/dL (8.5-10.4); CARBON DIOXIDE 20 mEq/l (22-31); CHLORIDE 108 mEq/L (97-110); CREATININE 0.8 mg/dL (0.6-1.0); GLOMERULAR FILTRATION RATE > 60; GLUCOSE 91 mg/dL (70-100); SODIUM 135 mEq/L (134-144)
[2017-02-03] MEDS: ENOXAPARIN 40 MG/0.4 ML SYR SC SCH (08:22)
[2017-02-03] MEDS: FLUTICASONE HFA 110 MCG MDI IH SCH ×2 (10:10→21:38)
[2017-02-03] MEDS: CHOLESTYRAMINE 4 GM PO SCH (10:26)
[2017-02-03] MEDS: ERTAPENEM 1 GM in NS 100 ML IV SCH (12:50)
--- NOTE | 2017-02-03 15:09 | HOSPPROG ---
Hospitalist Progress Note Assessment/Plan: 41y female with abd pain. First encounter, chart reviewed. #Diverticulitis changed to Invanz cont IVF cont IV abx #Pain add IV morphine #Hx lyme stable #Hx asthma stable #Dispo unclear, forge tender cont supportive care if not better consider surgery consult Subjective: Feeling bloated. Still having some pain. Objective: Vital Signs Temp Pulse Resp BP Pulse Ox 36.8 C 64 18 94/56 L 95 02/03/17 08:16 02/03/17 10:10 02/03/17 10:10 02/03/17 08:16 02/03/17 10:10 Laboratory Results 02/03/17 05:00 02/03/17 05:00 02/02/17 02/03/17 02/04/17 05:59 05:59 05:59 Intake Total 1999 Balance 1999 - Physical Exam Constitutional: no apparent distress, appears nourished, uncomfortable Eyes: PERRL, anicteric sclera, EOMI Ears, Nose, Mouth, Throat: moist mucous membranes, hearing normal, ears appear normal Cardiovascular: No JVD, No tachycardia, No edema Respiratory: no respiratory distress, no rales or rhonchi, reduced air movement Gastrointestinal: tenderness, distension, No ascites Skin: warm, normal color, No erythema Musculoskeletal: full muscle strength, normal joint ROM, no joint effusions Neurologic: AAOx3 Psychiatric: interacting appropriately, not anxious, not encephalopathic, thought process linear ICD10 Worksheet Patient Problems: Problems Problem Status Onset Lower abdominal pain Acute Diverticulitis Acute
[2017-02-03] MEDS: PROMETHAZINE HCL 25 MG/ML INJ IVP PRN (16:13)
[2017-02-03] MEDS: CHOLESTYRAMINE PO SCH ×2 (16:18→23:05)
[2017-02-04] MEDS: D5W 1/2 NS W/ 20 KCl/L 1,000 ML IV SCH ×2 (02:04→22:53)
[2017-02-04] MEDS: PROMETHAZINE HCL 25 MG/ML INJ IVP PRN (02:04)
[2017-02-04] MEDS: FLUTICASONE HFA 110 MCG MDI IH SCH ×2 (09:38→21:07)
[2017-02-04] MEDS: ERTAPENEM 1 GM in NS 100 ML IV SCH (10:05)
[2017-02-04] MEDS: ENOXAPARIN 40 MG/0.4 ML SYR SC SCH (10:06)
[2017-02-04] MEDS: CHOLESTYRAMINE PO SCH ×3 (10:20→21:25)
--- NOTE | 2017-02-04 12:10 | HOSPPROG ---
Hospitalist Progress Note Assessment/Plan: 41y female with abd pain. #Diverticulitis cont Invanz cont IVF appears improved #Pain IV morphine #Hx lyme stable #Hx asthma stable #Dispo unclear, improved cont supportive care if not better consider surgery consult Subjective: Feeling a bit better. Less pain. Still distended. Objective: Vital Signs Temp Pulse Resp BP Pulse Ox 37.0 C 67 16 98/60 L 96 02/04/17 08:00 02/04/17 09:40 02/04/17 09:40 02/04/17 08:00 02/04/17 09:40 Laboratory Results 02/03/17 05:00 02/03/17 05:00 02/03/17 02/04/17 02/05/17 05:59 05:59 05:59 Intake Total 1999 Balance 1999 - Physical Exam Constitutional: no apparent distress, appears nourished Eyes: PERRL, anicteric sclera Ears, Nose, Mouth, Throat: moist mucous membranes, hearing normal Cardiovascular: No JVD, No edema Respiratory: no respiratory distress, no rales or rhonchi, reduced air movement Gastrointestinal: tenderness, distension, No ascites, No guarding Skin: warm, normal color Musculoskeletal: full muscle strength, normal joint ROM, no joint effusions Neurologic: AAOx3 Psychiatric: not anxious, not encephalopathic, thought process linear ICD10 Worksheet Patient Problems: Problems Problem Status Onset Lower abdominal pain Acute Diverticulitis Acute
[2017-02-04] MEDS: HYDROmorphONE/DILAUDID 1 MG/ML SYR IVP PRN (17:50)
[2017-02-05 07:29] VITALS: BP 94/61; TEMP 98.5; O2SAT 98
[2017-02-05] MEDS: ERTAPENEM 1 GM in NS 100 ML IV SCH (08:24)
[2017-02-05] MEDS: ENOXAPARIN 40 MG/0.4 ML SYR SC SCH (08:39)
[2017-02-05] MEDS: D5W 1/2 NS W/ 20 KCl/L 1,000 ML IV SCH (09:16)
[2017-02-05] MEDS: FLUTICASONE HFA 110 MCG MDI IH SCH (09:25)
[2017-02-05] MEDS: HYDROmorphONE/DILAUDID 1 MG/ML SYR IVP PRN (09:29)
[2017-02-05 10:55] VITALS: PULSE 64; RESP 16
[2017-02-05] MEDS: CHOLESTYRAMINE PO SCH (11:25)
[2017-02-05] MEDS ORDERED: LACTULOSE 20 GM/30 ML UDCUP PO PRN (11:26)
[2017-02-05] MEDS ORDERED: POLYETHYLENE GLYCOL 3350 17 GM PKT PO PRN (11:26)
[2017-02-05] MEDS ORDERED: MAGNESIUM HYDROXIDE 30 ML UDCUP PO PRN (11:26)
[2017-02-05] MEDS ORDERED: BISACODYL 10 MG SUPP PR PRN (11:26)
[2017-02-05] MEDS ORDERED: SENNOSIDES/DOCUSATE SODIUM TAB PO SCH (21:00)
--- NOTE | 2017-02-05 22:43 | GDS ---
[f rep st] DISCHARGE SUMMARY DISCHARGE DIAGNOSES: 1. Diverticulitis. 2. Pain. 3. History of Lyme disease. 4. History of asthma. STUDIES AND PROCEDURES: CT of the abdomen. PHYSICAL EXAM: GENERAL: The patient is alert. VITAL SIGNS: Afebrile at 36.9, pulse is 65, respir atory rate is 14, blood pressure is 94/61. She is saturating 98% on room air. I have seen and evaluated the patient on the day of discharge. HOSPITAL COURSE: The patient is a 41-year-old female, who presents to the emergency room with compl aints of: 1. Abdominal pain. She was evaluated and diagnosed with (1) diverticulitis. She was placed on IV antibiotic therapy during this hospitalization and a CAT scan of the abdomen confirmed the diagnosis of diverticulitis. Her symptoms are significantly improved. She has no further pain. She is tole rating a regular diet. She has been transitioned to oral antibiotics at the time of disposition. S he will continue Augmentin for a total of a 10-day course of antibiotic therapy. 2. Pain. This has resolved with no further intervention warranted. 3. History of Lyme disease. This is stable. DISPOSITION: The patient will be discharged home independently. FOLLOWUP: Followup will be with her primary care physician in 1-2 days. DISCHARGE MEDICATIONS: I provided a prescription for Augmentin 875 mg p.o. b.i.d. for a course of 7 more days. DISCHARGE INSTRUCTIONS: I have instructed the patient to return to the emergency room if she has in creasing abdominal pain, nausea, vomiting, or severe constipation. I have also instructed her to re turn if she has fever or other potential complications. She understands this and she is in agreemen t with this plan. BILLING: I spent greater than 35 minutes in the care, coordination, and management of the patient's disposition. /[id number]/MODL
== END 2017-02-05 15:53 | disposition home or self-care (01) | DRG 392 ==
LOC: F3E 18:02
PROVIDERS: ADMIT Internal Medicine; ATTEND Internal Medicine
DX: K57.32 Diverticulitis of large intestine without perforation or abscess without bleeding (principal); J45.909 Unspecified asthma, uncomplicated
CPT/HCPCS: 96365; J0295; J1170; J1335; J1650; J2405; J2550; Q9967

== ENCOUNTER 2017-02-06 18:39 | Emergency (ER) | payer MEDICAID ==
[2017-02-06 19:37] LABS: % IMMATURE GRANULYOCYTES 0.4 % (0.0-1.1); ABSOLUTE IMMATURE GRANULOCYTES 0.05 10^3/uL (0.00-0.10); ADD DIFF? NO; ADD MORPH? NO; ADD SCAN? NO; ATYPICAL LYMPHOCYTE FLAG 10 (0-99); FRAGMENT RBC FLAG 0 (0-99); HEMATOCRIT 44.6 % (38.0-47.0); HEMOGLOBIN 15.7 g/dL (12.6-16.3); LEFT SHIFT FLG 0 (0-99); LIPEMIA HEMOLYSIS FLAG 90 (0-99); MEAN CELL HEMOGLOBIN CONCENTR. 35.2 g/dL (32.4-36.7); MEAN CELL VOLUME 82.4 fL (81.5-99.8); MEAN PLATELET VOLUME 9.4 fL (8.7-11.7); PLATELET CLUMPS FLAG 10 (0-99); PLATELET COUNT 346 10^3/uL (150-400); RED BLOOD CELL COUNT 5.41 10^6/uL (4.18-5.33); RED CELL DISTRIBUTION WIDTH 11.9 % (11.5-15.2)
--- NOTE | 2017-02-06 19:40 | EDPHY ---
HPI/HX/ROS/PE/MDM Narrative: CHIEF COMPLAINT: Abdominal pain HISTORY OF PRESENT ILLNESS: This patient is a 41 year old female discharged yesterday, 02/05/17, from admission for diverticulitis complaining today of abdominal pain and diarrhea. Upon arriving home yesterday evening, she states she felt nauseous and developed diarrhea, and took half an oxycodone in order to sleep. She states she was able to eat minimally, but began to feel worse. She reports she has experienced joint pain and general malaise as well. She states she is currently taking Augmentin. No fever, chills, chest pain, shortness of breath, palpitations, vomiting, urinary complaints, headache, lightheadedness. REVIEW OF SYSTEMS: Aside from elements discussed in the HPI, a comprehensive 10-point review of systems was reviewed and is negative. PAST MEDICAL HISTORY: Diverticulitis. Lyme disease, Asthma, , mold exposure SOCIAL HISTORY: Nonsmoker, denies alcohol use. Family history of diverticulitis. Past medical records reviewed including admission 02/02/17 for diverticulitis. VITAL SIGNS: Reviewed by me GENERAL: Well-developed, well-nourished, resting comfortably in no respiratory distress. HEENT: Atraumatic. Eyes: No icterus, no injection. Mouth: dry mucous membranes. No erythema or lesions. Neck: supple with no adenopathy. LUNGS: Clear to auscultation bilaterally, no wheezes, rhonchi or rales. CARDIAC: Regular rate and rhythm, no rubs, murmurs or gallops. ABDOMEN: Tenderness to left lower quadrant. Soft, nondistended, bowel sounds normal. BACK: No CVA tenderness. EXTREMITIES: No trauma. No edema. Range of motion is normal throughout. NEURO: Alert and oriented, grossly nonfocal. SKIN: Warm and dry, no rash. PSYCHIATRIC: Normal mentation, no agitation. Portions of this note were transcribed by a medical staff physician. I personally performed a history, physical exam, medical decision making, and confirmed accuracy of information the transcribed note. ED Course: This patient is a 41 year old female recently admitted for diverticulitis presenting today with recurrent abdominal pain and diarrhea. Physical exam reveals dry mucous membranes and tenderness to her left lower quadrant. Plan for fluid administration and labs including CBC, liver, lipase panels. Plan to CT abdomen and pelvis to assess for acute processes. 21:[address] Linda, radiologist. CT shows diverticulitis with no drainable abscess. Diverticulitis improving slightly. 21:[address] results. Feeling better post fluids and pain meds. She has spoken to her primary care provider, who suggests her symptoms are due to Augmentin. He suggests a prescription for VSL#3 Probiotics. She is comfortable being discharged home with this prescription. Return precautions discussed. MDM: Diff dx considered included but not limited to worsening diverticulitis, dehydration, abscess formation, bowel obstruction, perforation, sepsis. - Data Points Imaging Results: CT Abd Pelvis: Impression: 1. Acute diverticulitis of the distal descending and proximal sigmoid colon, slightly improved since a few days ago. 2. No CT evidence of appendicitis, abscess, or bowel obstruction. 3. Prominent bilateral adnexal veins, left greater than right suggesting pelvic congestion. Findings and recommendations discussed with emergency department physician, Nu Jorge MD at 2110 hours on February 06, 2017. Final report concurs with initial preliminary interpretation. Dictated By: Olivier Linda Imaging: Discussed imaging studies w/ health insurance agent Radiologist, I viewed and interpreted images myself Laboratory Results: Laboratory Results 02/06/17 19:30 02/06/17 19:30 Medications Given: Discontinued Medications Ketorolac Tromethamine (Toradol) 15 mg IVP EDNOW ONE Stop: 02/06/17 21:15 Last Admin: 02/06/17 21:26 Dose: 15 mg Ondansetron HCl (Zofran Odt 4 Mg Prepack#2) 1 btl TAKEHOME EDNOW ONE Stop: 02/06/17 21:24 Last Admin: 02/06/17 21:26 Dose: 1 btl Oxycodone/Acetaminophen (Percocet 5/325mg Prepack#4) 1 btl TAKEHOME EDNOW ONE Stop: 02/06/17 21:24 Last Admin: 02/06/17 21:27 Dose: 1 btl General Time Seen by Provider: 02/06/17 18:51 Initial Vital Signs: Initial Vital Signs Temperature (C) 36.7 C 02/06/17 18:43 Heart Rate 94 02/06/17 18:43 Respiratory Rate 20 02/06/17 18:43 Blood Pressure 96/74 L 02/06/17 18:43 O2 Sat (%) 98 02/06/17 18:43 O2 Delivery Mode Room Air Allergies/Adverse Reactions: Tetanus Vaccines and Toxoid [Tetanus Vaccines & Toxoid] Allergy (Verified 18:41) MIGRAINE MED Allergy (Uncoded 12/02/16 21:37) Home Medications: Medication Instructions Recorded Albuterol Sulfate [Proair Hfa] 2 puffs IH Q4H PRN 02/02/17 Compounded Cholestyramine 4 gm PO DAILY 02/02/17 Fluticasone Propionate [Flovent 2 puffs IH BID 02/02/17 Hfa] Herbals/Supplements -Info Only 1 ea PO DAILY 02/02/17 Acetaminophen [Tylenol 325mg (*)] 650 mg PO Q4HRS PRN #0 tab 02/05/17 Amoxicillin/Clavulanate Pot 875 mg PO BID #14 tab 02/05/17 [Augmentin 875 MG TAB (*)] Polyethylene Glycol 3350 [Miralax 17 gm PO DAILY PRN #0 pkt 02/05/17 17 gm (*)] Sennosides/Docusate Sodium 1 - 2 tab PO BID tab 02/05/17 [Senokot-S] Ondansetron Odt [Zofran Odt 4 mg 4 mg PO Q6 PRN #8 tab 02/06/17 (RX)] Oxycodone HCl 02/06/17 oxyCODONE/APAP 5/325 [Percocet 1 tab PO QID PRN #12 tab 02/06/17 5/325 (*)] Departure - Departure Disposition: Home, Routine, Self-Care Clinical Impression: Body aches Diverticulitis Qualifiers: Diverticulitis site: large intestine Diverticulitis bleeding: without bleeding Diverticulitis complication: without perforation or abscess Qualified Code(s): K57.32 - Diverticulitis of large intestine without perforation or abscess without bleeding Abdominal pain Qualifiers: Abdominal location: left lower quadrant Qualified Code(s): R10.32 - Left lower quadrant pain Diarrhea Qualifiers: Diarrhea type: unspecified type Qualified Code(s): R19.7 - Diarrhea, unspecified Condition: Good Instructions: Diverticulitis (ED), Diverticulitis Diet (ED) Additional Instructions: You may use oxycodone if needed for pain. You may take Zofran if needed for nausea and vomiting. Augmentin will result in some diarrhea. You been given a prescription for a high dose probiotic. As directed by your primary care physician, increase her cholestyramine to 4 times a day. Return to the emergency department or seek care urgently if you develop worsening symptoms, fever, significantly worsening abdominal pain, vomiting not controlled by Zofran. Referrals: KIRBY POSEY [Primary Care Provider] - As per Instructions Prescriptions: Ondansetron Odt [Zofran Odt 4 mg (RX)] 4 mg PO Q6 PRN #8 tab PRN Reason: Nausea oxyCODONE/APAP 5/325 [Percocet 5/325 (*)] 1 tab PO QID PRN #12 tab PRN Reason: Pain Report Scribed for: Nu Jorge Report Scribed by: Cristina Scott Date of Report: 02/06/17 Time of Report: 19:06
[2017-02-06 19:54] LABS: ALANINE AMINOTRANSFERASE 38 IU/L (9-52); ALBUMIN 4.3 g/dL (3.5-5.0); ALKALINE PHOSPHATASE 93 IU/L (38-126); ANION GAP 11 mEq/L (8-16); ASPARTATE AMINOTRANSFERASE 28 IU/L (14-46); BILIRUBIN,TOTAL 0.6 mg/dL (0.1-1.4); BILIRUBIN-CONJUGATED 0.4 mg/dL (0.0-0.5); BILIRUBIN-UNCONJUGATED 0.2 mg/dL (0.0-1.1); CALCIUM 9.7 mg/dL (8.5-10.4); CARBON DIOXIDE 19 mEq/l (22-31); CHLORIDE 103 mEq/L (97-110); CREATININE 0.8 mg/dL (0.6-1.0); GLOMERULAR FILTRATION RATE > 60; GLUCOSE 94 mg/dL (70-100); POTASSIUM 4.1 mEq/L (3.5-5.2); SODIUM 133 mEq/L (134-144); TOTAL PROTEIN 7.6 g/dL (6.3-8.2)
[2017-02-06] MEDS ORDERED: IOPAMIDOL (ISOVUE-300) 100 ML BTL ONE (20:22)
[2017-02-06] MEDS ORDERED: KETOROLAC 15 MG/1 ML SDV IVP ONE (21:14)
[2017-02-06] MEDS ORDERED: OXYCODONE/APAP 5/325MG PREPACK#4 BTL TAKEHOME ONE (21:23)
[2017-02-06] MEDS ORDERED: ONDANSETRON 4MG PREPACK#2 BTL TAKEHOME ONE (21:23)
[2017-02-06 21:37] VITALS: BP 107/89; PULSE 91; RESP 14; TEMP 97.5; O2SAT 96
== END 2017-02-06 21:36 | disposition home or self-care (01) ==
DX: K57.32 Diverticulitis of large intestine without perforation or abscess without bleeding (principal); M79.1 Myalgia
CPT/HCPCS: 96374; J1885; Q9967

== ENCOUNTER → 2017-05-17 | Outpatient (CLI) | payer MEDICAID ==
[~2017-05-17] MED LIST: GADOBUTROL 10 ML VIAL IVP ONE
== END ==
LOC: FIMAGING 07:37
PROVIDERS: ATTEND Surgery
DX: Z12.31 Encounter for screening mammogram for malignant neoplasm of breast (principal); N60.11 Diffuse cystic mastopathy of right breast; N60.12 Diffuse cystic mastopathy of left breast; Z15.01 Genetic susceptibility to malignant neoplasm of breast
CPT/HCPCS: 0159T; 77059; A9585; C8908

== ENCOUNTER 2017-06-26 05:45 | Observation (INO) | payer MEDICAID ==
[2017-06-26] MEDS ORDERED: HYOSCYAMINE SULFATE 0.125 MG TAB PO ONE (05:50)
[2017-06-26] MEDS ORDERED: LIDOCAINE 2% VISCOUS 15 ML UDCUP PO ONE (05:50)
[2017-06-26] MEDS ORDERED: MAG HYDROX/AL HYDROX/SIMETH 30 ML UDCUP PO ONE (05:50)
[2017-06-26] MEDS ORDERED: NS 1,000 ML IV ONE (05:50)
--- NOTE | 2017-06-26 05:55 | EDPHY ---
H & P Source: Patient, EMS - Medical/Surgical History Hx Asthma: Yes Hx Chronic Respiratory Disease: No Hx Diabetes: No Hx Cardiac Disease: No Hx Renal Disease: No Hx Cirrhosis: No Hx Alcoholism: No Hx HIV/AIDS: No Hx Splenectomy or Spleen Trauma: No Other PMH: , migraines, lymes disease, adrenal fatigue - Social History Smoking Status: Never smoked HPI/ROS: HPI CHIEF COMPLAINT: Epigastric abdominal pain HISTORY OF PRESENT ILLNESS: This patient is a 42-year-old female she has significant past medical history for Lyme disease and mold toxicity, history of diverticulitis, presents emergency room with epigastric discomfort that started at 1:00 a.m. or approximately 5 hours ago. Patient reports sharp stabbing pain initially located in the epigastric region it did not radiate anywhere specifically denies chest pain or shortness of breath. Denies any lower abdominal pain she did not have any vomiting or diarrhea. Did not have nausea with this. Did not radiate to her back. No fever. She has never had this discomfort before except 1 time when she had acute diverticulitis in her lower abdomen. As the pain persisted throughout the evening she decided to initially come to the emergency room by private vehicle but did not feel well so she called 911. She received IV Zofran and IV fentanyl in route and now her pain is from 8/10 to 5/10. Located epigastric region. She denies fever chest pain or shortness of breath. Past Medical History: Chronic Lyme disease, mold, diverticulitis, asthma Past Surgical History: Ectopic knee surgery Social History: Denies daily use of tobacco or alcohol. Did have marijuana this evening. Family History: Noncontributory. ROS REVIEW OF SYSTEMS: A comprehensive 10 point review of systems is otherwise negative aside from elements mentioned in the history of present illness. Exam Constitutional appears well nontoxic, triage nursing summary reviewed, vital signs reviewed, awake/alert. Eyes normal conjunctivae and sclera, EOMI, PERRLA. HENT normal inspection, atraumatic, moist mucus membranes, no epistaxis, neck supple/ no meningismus, no raccoon eyes. Respiratory clear to auscultation bilaterally, normal breath sounds, no respiratory distress, no wheezing. Cardiovascular rate normal, regular rhythm, no murmur, no edema, distal pulses normal. Gastrointestinal soft, mild tender palpation epigastric region, no rebound, no guarding, normal bowel sounds, no distension, no pulsatile mass. Genitourinary no CVA tenderness. Musculoskeletal no midline vertebral tenderness, full range of motion, no calf swelling, no tenderness of extremities, no meningismus, good pulses, neurovascularly intact. Skin pink, warm, & dry, no rash, skin atraumatic. Neurologic awake, alert and oriented x 3, AAOx3, moves all 4 extremities equally, motor intact, sensory intact, CN II-XII intact, normal cerebellar, normal vision, normal speech. Psychiatric normal mood/affect. Heme/Lymph/Immune no lymphadenopathy. Differential diagnosis includes but is not limited to and in no particular order : Bowel obstruction, appendicitis, gallbladder disease, diverticulitis, colitis , enteritis, perforated viscus, gastritis, GERD, esophagitis, urinary tract infection, pyelonephritis, kidney stones Medical Decision Making: Plan for this patient IV establishment IV fluid bolus , EKG, troponin, upright chest x-ray, ultrasound of the right upper quadrant. Check basic blood work including lipase LFTs. And re-evaluate. GI cocktail. Re-evaluation: EKG interpretation by me on record in [facility] system. Impression time of EKG 6:06 a.m., this is sinus rhythm rate of 69 nonspecific T-wave abnormalities V4 V5 V6 and V3. as well as to 3 and AVF. This very similar to her previous EKG dated 03/20/2016. Same T-wave abnormality seen. Inferior leads and V4 V5 V6. Otherwise no acute ischemic change on this particular EKG. Ultrasound of the abdomen right upper quadrant. The results of the study are negative for acute cholecystitis or gallstones. Enlarged liver but previously noted on previous imaging. Otherwise unremarkable right upper quadrant ultrasound. I discussed the results of this study with the radiologist Dr. Claros. ED x-ray chest one view: Negative for acute cardiopulmonary disease. No free air. 0639: I did re-evaluate this patient this time she is feeling better after GI cocktail. I did reexamine her abdomen she has mild tenderness mid abdomen. No right lower quadrant pain. Her blood work, ultrasound, EKG, chest x-ray are unremarkable EKG is unchanged from previous EKGs. She is feeling better after GI cocktail. She requested specifically that she rest here in the emergency room for another half an hour. I did re-evaluate her and she does have some midline abdominal pain. I did offer her CT scan of her abdomen pelvis with IV contrast to help further delineate this given that her ultrasound is normal she is deciding at this time she wants this. (Alphonso Hernandez) Constitutional: Initial Vital Signs Temperature (C) 36.9 C 06/26/17 05:51 Heart Rate 75 06/26/17 05:51 Respiratory Rate 16 06/26/17 05:51 Blood Pressure 113/71 06/26/17 05:51 O2 Sat (%) 92 06/26/17 05:51 O2 Delivery Mode Room Air Allergies/Adverse Reactions: Tetanus Vaccines and Toxoid [Tetanus Vaccines & Toxoid] Allergy (Verified 18:41) MIGRAINE MED Allergy (Uncoded 12/02/16 21:37) Home Medications: Medication Instructions Recorded Albuterol Sulfate [Proair Hfa] 2 puffs IH Q4H PRN 02/02/17 Compounded Cholestyramine 4 gm PO QID 02/02/17 Herbals/Supplements -Info Only 1 ea PO DAILY 02/02/17 Fluticasone Hfa 110 Mcg [Flovent 1 puffs IH BID 06/26/17 110 MCG Hfa MDI (*)] [place]-3 Fatty Acids [Fish Oil 1000 2,000 mg PO TID 06/26/17 mg (*)] Acetaminophen [Tylenol 325mg (*)] 650 mg PO Q6 PRN tab 06/27/17 Medical Decision Making ED Course/Re-evaluation: 700: The patient is signed out to me at change of shift by Dr. Hernandez. 715: I went evaluated the patient. I discussed her laboratory results. Patient states that her pain improved after receiving the GI cocktail but it is returning. It is mild. Still epigastric. It does not radiate. I answered all her questions. The patient was given Toradol 30 mg IV and Pepcid 20 mg IV for her pain. At this time she would prefer not to have further imaging. Dr. Hernandez did discussed possible CT imaging with her previously. On recheck the patient was still having epigastric discomfort. I offered her CT imaging. The patient does not want scanning at this time. Because of ongoing patient will be admitted. I discussed case with Dr. Ponce. He came to the emergency department to evaluate the patient. Patient was given morphine 4 mg IV for pain control. (Sovndal,Maddie S) Differential Diagnosis: My differential includes but is not limited to pancreatitis, cholecystitis, cholangitis, small-bowel obstruction, perforation, peptic ulcer disease, perforated ulcer, esophagitis, gastritis (Maddie Valladares) - Data Points Laboratory Results: Laboratory Results 06/26/17 05:55 06/26/17 05:55 Medications Given: Discontinued Medications Acetaminophen (Tylenol) 650 mg PO Q6 PRN PRN Reason: Pain, Mild/Fever, Can Take PO Stop: 12/23/17 10:02 Last Admin: 06/26/17 21:07 Dose: 650 mg Al Hydroxide/Mg Hydroxide (Maalox Susp) 30 ml PO ONCE ONE Stop: 06/26/17 05:51 Last Admin: 06/26/17 05:57 Dose: 30 ml Hyoscyamine Sulfate (Levsin, Hyomax-Sl) 0.25 mg PO ONCE ONE Stop: 06/26/17 05:51 Last Admin: 06/26/17 05:57 Dose: 0.25 mg Sodium Chloride (Ns) 1,000 mls @ 0 mls/hr IV EDNOW ONE; Wide Open PRN Reason: Protocol Stop: 06/26/17 05:51 Last Admin: 06/26/17 05:58 Dose: 1,000 mls Famotidine/Sodium Chloride (Pepcid 20 Mg (Premix)) 50 mls @ 200 mls/hr IV EDNOW ONE Stop: 06/26/17 07:39 Last Admin: 06/26/17 07:30 Dose: 50 mls Ketorolac Tromethamine (Toradol) 30 mg IVP EDNOW ONE Stop: 06/26/17 07:26 Last Admin: 06/26/17 07:30 Dose: 30 mg Lidocaine (Lidocaine 2% Viscous) 15 ml PO ONCE ONE Stop: 06/26/17 05:51 Last Admin: 06/26/17 05:57 Dose: 15 ml Morphine Sulfate (Morphine) 4 mg IVP EDNOW ONE Stop: 06/26/17 09:08 Last Admin: 06/26/17 09:10 Dose: 4 mg Pantoprazole Sodium (Protonix) 40 mg PO DAILY TELMA Stop: 12/24/17 08:59 Last Admin: 06/27/17 09:35 Dose: Not Given Departure - Departure Disposition: [facility] Acute Clinical Impression: Abdominal pain Qualifiers: Abdominal location: upper abdomen, unspecified Qualified Code(s): R10.10 - Upper abdominal pain, unspecified Gastritis Qualifiers: Gastritis type: unspecified gastritis Chronicity: acute Gastritis bleeding: without bleeding Qualified Code(s): K29.00 - Acute gastritis without bleeding Condition: Good
[2017-06-26 05:59] LABS: % IMMATURE GRANULYOCYTES 0.3 % (0.0-1.1); ABSOLUTE IMMATURE GRANULOCYTES 0.03 10^3/uL (0.00-0.10); ADD DIFF? NO; ADD MORPH? NO; ADD SCAN? NO; ATYPICAL LYMPHOCYTE FLAG 10 (0-99); FRAGMENT RBC FLAG 0 (0-99); HEMATOCRIT 44.6 % (38.0-47.0); HEMOGLOBIN 15.2 g/dL (12.6-16.3); LEFT SHIFT FLG 0 (0-99); LIPEMIA HEMOLYSIS FLAG 90 (0-99); MEAN CELL HEMOGLOBIN 28.5 pg (27.9-34.1); MEAN CELL HEMOGLOBIN CONCENTR. 34.1 g/dL (32.4-36.7); MEAN CELL VOLUME 83.7 fL (81.5-99.8); MEAN PLATELET VOLUME 9.4 fL (8.7-11.7); PLATELET CLUMPS FLAG 0 (0-99); PLATELET COUNT 325 10^3/uL (150-400); RED BLOOD CELL COUNT 5.33 10^6/uL (4.18-5.33); RED CELL DISTRIBUTION WIDTH 12.7 % (11.5-15.2)
[2017-06-26 06:08] LABS: INR 0.97 (0.83-1.16); PROTIME(PATIENT) 12.8 SEC (12.0-15.0)
[2017-06-26 06:09] LABS: APTT 26.7 SEC (23.0-38.0)
--- NOTE | 2017-06-26 06:10 | CPEKG ---
Heart Rate: 69 RR Interval: 870 P-R Interval: 168 QRSD Interval: 82 QT Interval: 384 QTC Interval: 412 P [place]: 76 QRS [place]: 78 T Wave [place]: -85 EKG Severity - ABNORMAL ECG - EKG Impression: SINUS RHYTHM EKG Impression: NONSPECIFIC T ABNORMALITIES, DIFFUSE LEADS Electronically Signed By: Alphonso Hernandez 26-Jun-2017 06:45:25
[2017-06-26 06:23] LABS: ALANINE AMINOTRANSFERASE 27 IU/L (9-52); ALBUMIN 4.1 g/dL (3.5-5.0); ALKALINE PHOSPHATASE 66 IU/L (38-126); ANION GAP 12 mEq/L (8-16); ASPARTATE AMINOTRANSFERASE 20 IU/L (14-46); BILIRUBIN,TOTAL 0.2 mg/dL (0.1-1.4); BILIRUBIN-UNCONJUGATED 0.2 mg/dL (0.0-1.1); CALCIUM 9.4 mg/dL (8.5-10.4); CARBON DIOXIDE 23 mEq/l (22-31); CHLORIDE 103 mEq/L (97-110); CREATININE 0.9 mg/dL (0.6-1.0); GLOMERULAR FILTRATION RATE > 60; GLUCOSE 89 mg/dL (70-100); POTASSIUM 4.5 mEq/L (3.5-5.2); SODIUM 138 mEq/L (134-144)
[2017-06-26 06:35] LABS: TROPONIN I < 0.012 ng/mL (0.000-0.034)
[2017-06-26] MEDS ORDERED: KETOROLAC 30 MG/1 ML SDV IVP ONE (07:25)
[2017-06-26] MEDS ORDERED: FAMOTIDINE 20 MG/NACL 50 ML IV ONE (07:25)
[2017-06-26 10:00] LABS: COLOR YELLOW; LEUKOCYTE ESTERASE,URINE NEGATIVE (NEGATIVE); NITRITE,URINE NEGATIVE (NEGATIVE)
[2017-06-26] MEDS ORDERED: PROMETHAZINE HCL 25 MG/ML INJ IVP PRN (10:03)
[2017-06-26] MEDS ORDERED: ACETAMINOPHEN 325 MG TAB PO PRN (10:03)
[2017-06-26] MEDS ORDERED: oxyCODONE IR 5 MG TAB PO PRN (10:03)
[2017-06-26] MEDS ORDERED: ONDANSETRON 4 MG/2 ML VIAL IVP PRN (10:03)
[2017-06-26] MEDS ORDERED: HYOSCYAMINE SULFATE 0.125 MG TAB PO PRN (10:03)
--- NOTE | 2017-06-26 10:41 | PDGENHP ---
History and Physical - Chief Complaint Abdominal pain - History of Present Illness This is a 42-year-old female presented to the emergency department today with abdominal pain. The pain awoke her from sleep at at 1 o'clock this morning. Pain was described as a 7/10 sharp pain in the middle of her abdomen. She denies any nausea vomiting or diarrhea. Her last bowel movement was yesterday. She denies any constipation. Denies any fevers or chills. She denies any sick contacts. She has had diverticulitis in the past and says that this pain is similar. Emergency department she was given some morphine which helped. She was also given some Levsin which did not help. CT scan of the abdomen was offered but was declined by the patient. Reports flatus. History Information - Allergies/Home Medication List Allergies/Adverse Reactions: Tetanus Vaccines and Toxoid [Tetanus Vaccines & Toxoid] Allergy (Verified 18:41) MIGRAINE MED Allergy (Uncoded 12/02/16 21:37) Home Medications: Albuterol Sulfate [Proair Hfa] 2 puffs IH Q4H PRN 02/02/17 [Last Taken 06/25/17] Compounded Cholestyramine 4 gm PO QID 02/02/17 [Last Taken 06/24/17] Herbals/Supplements -Info Only 1 ea PO DAILY 02/02/17 [Last Taken Unknown] Fluticasone Hfa 110 Mcg [Flovent 110 MCG Hfa MDI (*)] 1 puffs IH BID 06/26/17 [ Last Taken 06/25/17] [place]-3 Fatty Acids [Fish Oil 1000 mg (*)] 2,000 mg PO TID 06/26/17 [Last Taken Unknown] I have personally reviewed and updated: family history, medical history, social history, surgical history Past Medical History: Lyme disease, diverticulitis, mold exposure - Surgical History Additional surgical history: section, laparoscopy with right salpingo- oophorectomy due to ectopic - Family History Additional family history: Diverticulitis - Social History Smoking Status: Never smoked Alcohol Use: None Drug Use: None Review of Systems Review of Systems: ROS: 10pt was reviewed & negative except for what was stated in HPI & below Physical Exam Physical Exam: Temp Pulse Resp BP Pulse Ox 36.7 C 55 L 18 107/72 94 06/26/17 10:29 06/26/17 10:29 06/26/17 10:29 06/26/17 10:29 06/26/17 10:29 Constitutional: no apparent distress, appears nourished, not in pain Eyes: PERRL, anicteric sclera, EOMI Ears, Nose, Mouth, Throat: moist mucous membranes, hearing normal, ears appear normal, no oral mucosal ulcers Cardiovascular: regular rate and rhythym, no murmur, rub, or gallop, No edema Respiratory: no respiratory distress, no rales or rhonchi, clear to auscultation Gastrointestinal: normoactive bowel sounds, soft, non-tender abdomen, no palpable masses, distension (Mild), No guarding, No rebound Genitourinary: no bladder fullness, no bladder tenderness Skin: warm, normal color, no rashes or abrasions, no fluctuance, no induration, No mottled Musculoskeletal: full muscle strength, no muscle tenderness, normal joint ROM, no joint effusions Neurologic: AAOx3, CN II-XII Intact, No facial droop Psychiatric: interacting appropriately, not anxious, not encephalopathic, thought process linear Lymph, Heme, Immunologic: no cervical LAD, no supraclavicular LAD Lab Data & Imaging Review 06/26/17 05:55 06/26/17 05:55 WBC 9.55 10^3/uL (3.80-9.50) H 06/26/17 05:55 RBC 5.33 10^6/uL (4.18-5.33) 06/26/17 05:55 Hgb 15.2 g/dL (12.6-16.3) 06/26/17 05:55 Hct 44.6 % (38.0-47.0) 06/26/17 05:55 MCV 83.7 fL (81.5-99.8) 06/26/17 05:55 MCH 28.5 pg (27.9-34.1) 06/26/17 05:55 MCHC 34.1 g/dL (32.4-36.7) 06/26/17 05:55 RDW 12.7 % (11.5-15.2) 06/26/17 05:55 Plt Count 325 10^3/uL (150-400) 06/26/17 05:55 MPV 9.4 fL (8.7-11.7) 06/26/17 05:55 Neut % (Auto) 56.4 % (39.3-74.2) 06/26/17 05:55 Lymph % (Auto) 29.7 % (15.0-45.0) 06/26/17 05:55 [place] % (Auto) 7.9 % (4.5-13.0) 06/26/17 05:55 Eos % (Auto) 5.1 % (0.6-7.6) 06/26/17 05:55 Baso % (Auto) 0.6 % (0.3-1.7) 06/26/17 05:55 Nucleat RBC Rel Count 0.0 % (0.0-0.2) 06/26/17 05:55 Absolute Neuts (auto) 5.38 10^3/uL (1.70-6.50) 06/26/17 05:55 Absolute Lymphs (auto) 2.84 10^3/uL (1.00-3.00) 06/26/17 05:55 Absolute Monos (auto) 0.75 10^3/uL (0.30-0.80) 06/26/17 05:55 Absolute Eos (auto) 0.49 10^3/uL (0.03-0.40) H 06/26/17 05:55 Absolute Basos (auto) 0.06 10^3/uL (0.02-0.10) 06/26/17 05:55 Absolute Nucleated RBC 0.00 10^3/uL (0-0.01) 06/26/17 05:55 Immature Gran % 0.3 % (0.0-1.1) 06/26/17 05:55 Immature Gran # 0.03 10^3/uL (0.00-0.10) 06/26/17 05:55 PT 12.8 SEC (12.0-15.0) 06/26/17 05:55 INR 0.97 (0.83-1.16) 06/26/17 05:55 APTT 26.7 SEC (23.0-38.0) 06/26/17 05:55 Sodium 138 mEq/L (134-144) 06/26/17 05:55 Potassium 4.5 mEq/L (3.5-5.2) 06/26/17 05:55 Chloride 103 mEq/L (97-110) 06/26/17 05:55 Carbon Dioxide 23 mEq/l (22-31) 06/26/17 05:55 Anion Gap 12 mEq/L (8-16) 06/26/17 05:55 BUN 18 mg/dL (7-23) 06/26/17 05:55 Creatinine 0.9 mg/dL (0.6-1.0) 06/26/17 05:55 Estimated GFR > 60 06/26/17 05:55 Glucose 89 mg/dL (70-100) 06/26/17 05:55 Calcium 9.4 mg/dL (8.5-10.4) 06/26/17 05:55 Total Bilirubin 0.2 mg/dL (0.1-1.4) 06/26/17 05:55 Conjugated Bilirubin 0.0 mg/dL (0.0-0.5) 06/26/17 05:55 Unconjugated Bilirubin 0.2 mg/dL (0.0-1.1) 06/26/17 05:55 AST 20 IU/L (14-46) 06/26/17 05:55 ALT 27 IU/L (9-52) 06/26/17 05:55 Alkaline Phosphatase 66 IU/L (38-126) 06/26/17 05:55 Troponin I < 0.012 ng/mL (0.000-0.034) 06/26/17 05:55 Total Protein 7.0 g/dL (6.3-8.2) 06/26/17 05:55 Albumin 4.1 g/dL (3.5-5.0) 06/26/17 05:55 Lipase 133 IU/L (23-300) 06/26/17 05:55 Beta HCG, Qual NEGATIVE 06/26/17 05:55 Urine Color YELLOW 06/26/17 09:50 Urine Appearance CLEAR 06/26/17 09:50 Urine pH 5.0 (5.0-7.5) 06/26/17 09:50 Ur Specific [place] 1.012 (1.002-1.030) 06/26/17 09:50 Urine Protein NEGATIVE (NEGATIVE) 06/26/17 09:50 Urine Ketones NEGATIVE (NEGATIVE) 06/26/17 09:50 Urine Blood NEGATIVE (NEGATIVE) 06/26/17 09:50 Urine Nitrate NEGATIVE (NEGATIVE) 06/26/17 09:50 Urine Bilirubin NEGATIVE (NEGATIVE) 06/26/17 09:50 Urine Urobilinogen NEGATIVE EU (0.2-1.0) 11 09:50 Ur Leukocyte Esterase NEGATIVE (NEGATIVE) 06/26/17 09:50 Urine Glucose NEGATIVE (NEGATIVE) 06/26/17 09:50 Visualized and Interpreted Chest x-ray results: Yes Chest X-Ray results: no infiltrate, normal Visualized and Interpreted EKG results: Yes EKG Interpretation: Positive for: normal sinsus rhythm (69 beats per minute). Negative for: Q waves, ST elevation, ST depression Assessment & Plan Assessment: This is a 42-year-old female presenting with: # Abdominal pain (Acute) most likely due to indigestion versus dyspepsia -start PPI -trial Levsin -diet as tolerated -will consider pursuing further imaging if she develops any clinical signs and symptoms of obstruction or infectious etiology Disposition: The patient will be placed in observation. Further workup and care is dependent on the patient's clinical course. If she is improving later today she may be eligible to be discharged with outpatient follow-up.
[2017-06-27 05:13] VITALS: RESP 16
[2017-06-27 07:02] VITALS: BP 124/54; PULSE 55; TEMP 98.1; O2SAT 97
[2017-06-27] MEDS ORDERED: PANTOPRAZOLE SODIUM 40 MG TAB PO SCH (09:00)
[2017-06-27] MEDS ORDERED: ALBUTEROL INH PREPACK MDI TAKEHOME PRN (09:34)
[2017-06-27] MEDS ORDERED: ALBUTEROL 200 PUFFS/18 GM MDI IH PRN (09:57)
[2017-06-27] MEDS ORDERED: CHOLESTYRAMINE 4 GM PO SCH ×2 (12:00)
--- NOTE | 2017-06-27 15:30 | GDS ---
[f rep st] DISCHARGE SUMMARY DISCHARGE DIAGNOSES: Abdominal pain. PHYSICAL EXAM: GENERAL: The patient is alert. VITAL SIGNS: Afebrile at 36.7, pulse is 55, respira tory rate 16, blood pressure is 124/54, she is saturating 97% on room air. I have seen and evaluated the patient on the day of discharge. HOSPITAL COURSE: The patient is a 42-year-old female who presented to the emergency room with compla ints of acute abdominal pain of unclear etiology. During this hospitalization, she was treated with supportive management. Her symptoms have completely resolved. Her abdominal pain is gone, she is to lerating a regular diet. She has no signs of infection, and is eager to be discharged home. I revie wed the patient's hospital course with her; it is unclear the cause of her abdominal pain, however, i t is completely resolved. DISPOSITION: She will be discharged home independently. Followup will be with her primary care phys rloly. DISCHARGE MEDICATIONS: I have not provided the patient any prescriptions at the time of disposition, or discontinued any of her previously prescribed home medications. /[id number]/MODL
[2017-06-27] MEDS ORDERED: OMEGA-3 FATTY ACIDS 1,000 MG CAP PO SCH (16:00)
[2017-06-27] MEDS ORDERED: FLUTICASONE HFA 110 MCG MDI IH SCH (21:00)
[2017-06-28] MEDS ORDERED: Herbals/Supplements -Info Only PO SCH (09:00)
--- NOTE | 2017-06-28 09:47 | ASDISCHSUM ---
Discharge Information Plan Status:Home with No Needs Medically Cleared to Leave:06/26/2017 Discharge Date:06/27/2017 10:55 AM CM D/C Disposition: ADT D/C Disposition:Home, Routine, Self-Care Projected Discharge Date:06/27/2017 12:00 AM Transportation at D/C: Discharge Delay Reason: Follow-Up Date:06/27/2017 12:00 AM Discharge Slot: Final Diagnosis: Placement Information Patient Contact Information Contact Name:TY Relationship:Other Address: Work Phone: City: [facility] Phone: State/Zip Code: Email: Financial Information Financial Class: Primary Plan Desc:[employer]ICA[employer] SUPPORT COORDINATOR Primary Plan Number:[id number] Secondary Plan Desc: Secondary Plan Number: Assessment Information Intervention Information
== END 2017-06-27 10:55 | disposition home or self-care (01) ==
LOC: EDUNIT# → F3E 10:48
PROVIDERS: ADMIT Family Medicine; ATTEND Family Medicine
DX: R10.13 Epigastric pain (principal)
CPT/HCPCS: 71010; 76705; 93005; G0378; 96374; J1885

== ENCOUNTER 2017-09-30 12:49 | Emergency (ER) | payer MEDICAID ==
[2017-09-30 13:00] VITALS: RESP 16; TEMP 98.2; O2SAT 96
--- NOTE | 2017-09-30 14:32 | EDPHY ---
H & P Stated Complaint: fever chills/body aches and abd pain/nausea Time Seen by Provider: 09/30/17 14:31 HPI/ROS: HPI: This is a 42-year-old female who presents with Chief Complaint: fever chills/body aches and abd pain/nausea Location: Body Quality: Aches Duration: 2-3 days Signs and Symptoms: + fever, + nausea, no vomiting, no hematemesis, no blood in stool, no abdominal bloating, no diarrhea, + lower bilateral back pain, no urinary symptoms, no vaginal bleeding/discharge, no indigestion, no chest pain, no shortness of breath Timing: Acute, worsening Severity: 01/22 Context: Patient is status post was exposed to influenza over the weekend presents with 2-3 day history of fever T-max a 101 oral F, body aches, muscle cramping, generalized abdominal pain that is now concentrated in the epigastric area accompanied by nausea but not by vomiting. Denies diarrhea. She did have lower back pain, bilateral, nonradiating in nature 2 nights ago but has since resolved. Denies any urinary symptoms/blood in her urine. She has reports that she is eating and drinking normally. Denies neck stiffness/ headache/cough/shortness of breath/chest pain. No history of lung disease. She has been taking [id number] pain medication with transient relief. Modifying Factors: See above Comment: ROS: see HPI Constitutional: + fever, + chills, no weight loss Eyes: No blurred vision Respiratory: No shortness of breath, no cough Cardiovascular: No chest pain, no palpitations Gastrointestinal: No nausea, no vomiting, no diarrhea, no hematemesis, no blood in stool Genitourinary: No dysuria, no blood in urine Extremities: No myalgias, no edema Neurologic: No weakness, no numbness Skin: No rashes, no petechiae Hematologic: No bruising, no bleeding MEDICAL/SURGICAL/SOCIAL HISTORY: Medical history: , migraines, lyme disease, adrenal fatigue Surgical history: Denies Social history: Employed. CONSTITUTIONAL: Well-appearing adult white female, awake and alert, no obvious distress HEENT: Atraumatic and normocephalic, PERRL, EOMI. Tympanic membranes clear. Oropharynx clear, no exudate and moist pink mucosa. Airway patent. No lymphadenopathy. No meningismus. Cardiovascular: Normal S1/S2, regular rate, regular rhythm, without murmur rub or gallop. PULMONARY/CHEST: Symmetrical and nontender. Clear to auscultation bilaterally. Good air movement. No accessory muscle usage. ABDOMEN: Soft, nondistended, epigastric moderate tenderness, no rebound, no guarding, no peritoneal signs, no masses or organomegaly. No CVAT. EXTREMITIES: 2/2 pulses, strength 5/5, no deformities, no clubbing, no cyanosis or edema. NEUROLOGICAL: no focal neuro deficits. GCS 15. SKIN: Warm and dry, no erythema. no rash. Good capillary refill. Source: Patient Exam Limitations: No limitations - Personal History LMP (Females 10-55): 8-14 Days Ago Current Tetanus/Diphtheria Vaccine: No - Medical/Surgical History Hx Asthma: Yes Hx Chronic Respiratory Disease: No Hx Diabetes: No Hx Cardiac Disease: No Hx Renal Disease: No Hx Cirrhosis: No Hx Alcoholism: No Hx HIV/AIDS: No Hx Splenectomy or Spleen Trauma: No Other PMH: , migraines, lymes disease, adrenal fatigue - Social History Smoking Status: Never smoked Constitutional: Initial Vital Signs Temperature (C) 36.8 C 09/30/17 12:57 Heart Rate 90 09/30/17 12:57 Respiratory Rate 16 09/30/17 12:57 Blood Pressure 103/79 09/30/17 12:57 O2 Sat (%) 96 09/30/17 12:57 O2 Delivery Mode Room Air Allergies/Adverse Reactions: Tetanus Vaccines and Toxoid [Tetanus Vaccines & Toxoid] Allergy (Verified 18:41) MIGRAINE MED Allergy (Uncoded 12/02/16 21:37) Home Medications: Medication Instructions Recorded Ondansetron Odt [Zofran Odt 4 mg 4 mg PO Q4 PRN #12 tab 09/30/17 (*)] Oseltamivir Phosphate [Tamiflu 75 75 mg PO DAILY #7 cap 09/30/17 mg (*)] Medical Decision Making ED Course/Re-evaluation: Labs, urinalysis, IV fluids, IV medications ordered given 2 L normal saline, IV Toradol and IV Dilaudid with adequate relief Influenza is negative. Has known exposure and symptomatic. labs unremarkable. repeat abdomen exam soft and nontender. doubt surgical abdomen. discussed imaging of abdomen and patient declines which I feel is reasonable. will give Tamiflu prophylaxis and supportive care This patient was seen under the supervision of my secondary supervising physician. I evaluated care for this patient independently. Differential Diagnosis: Abdominal pain including but not limited to influenza, cholecystitis, gastritis and urinary tract infection. - Data Points Laboratory Results: Laboratory Results 09/30/17 15:20 18 15:20 18 18 09/30/17 15:20 15:20 15:20 WBC 8.02 10^3/uL 10^3/uL (3.80-9.50) RBC 5.30 10^6/uL 10^6/uL (4.18-5.33) Hgb 15.5 g/dL g/dL (12.6-16.3) Hct 44.9 % % (38.0-47.0) MCV 84.7 fL fL (81.5-99.8) MCH 29.2 pg pg (27.9-34.1) MCHC 34.5 g/dL g/dL (32.4-36.7) RDW 12.7 % % (11.5-15.2) Plt Count 333 10^3/uL 10^3/uL (150-400) MPV 9.5 fL fL (8.7-11.7) Neut % (Auto) 58.6 % % (39.3-74.2) Lymph % (Auto) 30.2 % % (15.0-45.0) [place] % (Auto) 4.9 % % (4.5-13.0) Eos % (Auto) 5.1 % % (0.6-7.6) Baso % (Auto) 0.7 % % (0.3-1.7) Nucleat RBC Rel Count 0.0 % % (0.0-0.2) Absolute Neuts (auto) 4.70 10^3/uL 10^3/uL (1.70-6.50) Absolute Lymphs (auto) 2.42 10^3/uL 10^3/uL (1.00-3.00) Absolute Monos (auto) 0.39 10^3/uL 10^3/uL (0.30-0.80) Absolute Eos (auto) 0.41 10^3/uL H 10^3/uL (0.03-0.40) Absolute Basos (auto) 0.06 10^3/uL 10^3/uL (0.02-0.10) Absolute Nucleated RBC 0.00 10^3/uL 10^3/uL (0-0.01) Immature Gran % 0.5 % % (0.0-1.1) Immature Gran # 0.04 10^3/uL 10^3/uL (0.00-0.10) VBG Lactic Acid Sodium 140 mEq/L mEq/L (135-145) Potassium 3.9 mEq/L mEq/L (3.5-5.2) Chloride 108 mEq/L mEq/L (97-110) Carbon Dioxide 20 mEq/l L mEq/l (22-31) Anion Gap 12 mEq/L mEq/L (8-16) BUN 15 mg/dL mg/dL (7-23) Creatinine 0.9 mg/dL mg/dL (0.6-1.0) Estimated GFR > 60 Glucose 126 mg/dL H mg/dL (70-100) Calcium 9.5 mg/dL mg/dL (8.5-10.4) Total Bilirubin 0.3 mg/dL mg/dL (0.1-1.4) Conjugated Bilirubin 0.2 mg/dL mg/dL (0.0-0.5) Unconjugated Bilirubin 0.1 mg/dL mg/dL (0.0-1.1) AST 46 IU/L IU/L (14-46) ALT 67 IU/L H IU/L (9-52) Alkaline Phosphatase 89 IU/L IU/L (38-126) Creatine Kinase 38 IU/L IU/L (0-156) Total Protein 7.3 g/dL g/dL (6.3-8.2) Albumin 4.1 g/dL g/dL (3.5-5.0) Lipase 155 IU/L IU/L (23-300) Beta HCG, Qual NEGATIVE Nasal Influenza A PCR Nasal Influenza B PCR RSV (PCR) 09/30/17 09/30/17 15:20 13:00 WBC RBC Hgb Hct MCV MCH MCHC RDW Plt Count MPV Neut % (Auto) Lymph % (Auto) [place] % (Auto) Eos % (Auto) Baso % (Auto) Nucleat RBC Rel Count Absolute Neuts (auto) Absolute Lymphs (auto) Absolute Monos (auto) Absolute Eos (auto) Absolute Basos (auto) Absolute Nucleated RBC Immature Gran % Immature Gran # VBG Lactic Acid 1.2 mmol/L mmol/L (0.7-2.1) Sodium Potassium Chloride Carbon Dioxide Anion Gap BUN Creatinine Estimated GFR Glucose Calcium Total Bilirubin Conjugated Bilirubin Unconjugated Bilirubin AST ALT Alkaline Phosphatase Creatine Kinase Total Protein Albumin Lipase Beta HCG, Qual Nasal Influenza A PCR NEGATIVE FOR FLU A (NEGATIVE) Nasal Influenza B PCR NEGATIVE FOR FLU B (NEGATIVE) RSV (PCR) NEGATIVE FOR RSV (NEGATIVE) Medications Given: Discontinued Medications Hydromorphone HCl (Dilaudid) 0.5 mg IVP EDNOW ONE Stop: 09/30/17 14:39 Last Admin: 09/30/17 15:15 Dose: 0.5 mg Sodium Chloride (Ns) 1,000 mls @ 0 mls/hr IV EDNOW ONE; Wide Open PRN Reason: Protocol Stop: 09/30/17 14:39 Last Admin: 09/30/17 15:16 Dose: 1,000 mls Sodium Chloride (Ns) 1,000 mls @ 0 mls/hr IV EDNOW ONE; Wide Open PRN Reason: Protocol Stop: 09/30/17 14:39 Last Admin: 09/30/17 15:16 Dose: 1,000 mls Ketorolac Tromethamine (Toradol) 30 mg IVP EDNOW ONE Stop: 09/30/17 14:39 Last Admin: 09/30/17 15:15 Dose: 30 mg Departure - Departure Disposition: Home, Routine, Self-Care Clinical Impression: Influenza-like illness Condition: Good Instructions: Influenza (ED) Additional Instructions: Consume a minimum of 64 oz of water or electrolyte fluid replacement drinks that include Gatorade, Powerade, Pedialyte. Eat a bland diet for the next 48 hours and then slowly advance as tolerated. Take Zofran 1 tab every 4 hours as needed for nausea, vomiting. Return to the Emergency Room if symptoms do not resolve in the next 48-72 hours , you spike a fever > 102 F, or experience intractable abdominal pain/nausea/ vomiting. Referrals: KIRBY POSEY [Primary Care Provider] - As per Instructions Prescriptions: Ondansetron Odt [Zofran Odt 4 mg (*)] 4 mg PO Q4 PRN #12 tab PRN Reason: Nausea/Vomiting, Use 1st Oseltamivir Phosphate [Tamiflu 75 mg (*)] 75 mg PO DAILY #7 cap
[2017-09-30] MEDS ORDERED: NS 1,000 ML IV ONE ×2 (14:38)
[2017-09-30] MEDS ORDERED: KETOROLAC 30 MG/1 ML SDV IVP ONE (14:38)
[2017-09-30] MEDS ORDERED: HYDROmorphONE/DILAUDID 1 MG/ML INJ IVP ONE (14:38)
[2017-09-30 15:41] LABS: PLATELET COUNT 333 10^3/uL (150-400)
[2017-09-30 15:48] LABS: CREATINE KINASE 38 IU/L (0-156)
[2017-09-30 15:59] VITALS: BP 101/58; PULSE 71
== END 2017-09-30 16:43 | disposition home or self-care (01) ==
DX: J11.1 Influenza due to unidentified influenza virus with other respiratory manifestations (principal); E86.9 Volume depletion, unspecified; J45.909 Unspecified asthma, uncomplicated
CPT/HCPCS: 96374; J1170

== ENCOUNTER → 2019-01-15 | Outpatient (CLI) | payer MEDICAID | LOC: FIMAGING 09:38 ==